=== PATIENT | female | born 1990 | race Caucasian/White ===

== ENCOUNTER 2019-04-24 15:46 | Observation (INO) | payer OTHER ==
[2019-04-24] MEDS ORDERED: IBUPROFEN 600 MG TAB PO STA (16:53)
[2019-04-24] MEDS ORDERED: ACETAMINOPHEN TAB 325 MG TAB PO STA (16:53)
[2019-04-24] MEDS ORDERED: DIPH,PERTUS(ACELL)TETVAC-LF 0.5 ML VIAL IM ONE (16:53)
--- NOTE | 2019-04-24 16:53 | ED ---
Skin/Abscess/FB HPI - General Chief complaint: Skin/Abscess/Foreign Body Stated complaint: Abscess Time Seen by Provider: 04/24/19 16:25 Source: patient, RN notes reviewed, old records reviewed Mode of arrival: ambulatory Limitations: no limitations - History of Present Illness Initial comments: This is a 28-year-old female DF for evaluation. Patient is fever multiple abscesses. History of IV drug abuse, Cocaine. Patient denies alcohol abuse. No other underlying medical conditions. She has history of abscess before she present to symptomatic today for inpatient psychiatric and drug abuse treatment. Patient presents today from [facility] for evaluation regarding fever and abscesses. Swelling of arm and right hand being the most significant area. Positive nausea no vomiting last drug use was is more MD complaint: rash, abscess/boil (Right Hand) -: days(s) Tetanus Up to Date: yes Location: RUE, R hand Severity: moderate Severity scale (1-10): 5 Quality: aching Consistency: constant Improves with: none Context: none Associated symptoms: denies other symptoms Treatments Prior to Arrival: none - Related Data Allergies Allergy/AdvReac Type Severity Reaction Status Date / Time No Known Allergies Allergy Verified 04/24/19 16:00 Review of Systems ROS Statement: Those systems with pertinent positive or pertinent negative responses have been documented in the HPI. ROS Other: All systems not noted in ROS Statement are negative. Past Medical History Additional Past Medical History / Comment(s): hep c History of Any Multi-Drug Resistant Organisms: None Reported Past Surgical History: Appendectomy, Section Additional Past Surgical History / Comment(s): liver biopsy Past Psychological History: Anxiety, Bipolar, Depression Smoking Status: Current every day smoker Past Alcohol Use History: None Reported Past Drug Use History: Cocaine, Heroin, IV Drug Use, Marijuana General Exam Limitations: no limitations General appearance: alert, in no apparent distress Head exam: Present: atraumatic, normocephalic, normal inspection Eye exam: Present: normal appearance, PERRL, EOMI. Absent: scleral icterus, conjunctival injection, periorbital swelling ENT exam: Present: normal exam, mucous membranes moist Neck exam: Present: normal inspection. Absent: tenderness, meningismus, lymphadenopathy Respiratory exam: Present: normal lung sounds bilaterally. Absent: respiratory distress, wheezes, rales, rhonchi, stridor Cardiovascular Exam: Present: normal rhythm, tachycardia, normal heart sounds. Absent: systolic murmur, diastolic murmur, rubs, gallop, clicks GI/Abdominal exam: Present: soft, normal bowel sounds. Absent: distended, tenderness, guarding, rebound, rigid Extremities exam: Present: normal inspection, full ROM, normal capillary refill. Absent: tenderness, pedal edema, joint swelling, calf tenderness Back exam: Present: normal inspection Neurological exam: Present: alert, oriented X3, CN II-XII intact Psychiatric exam: Present: normal affect, normal mood Skin exam: Present: warm, dry, intact, normal color. Absent: rash Course Vital Signs 04/24/19 04/24/19 15:55 17:39 Temperature 100.9 F H Pulse Rate 120 H 108 H Respiratory 20 18 Rate Blood Pressure 108/70 106/68 O2 Sat by Pulse 100 99 Oximetry - Reevaluation(s) Reevaluation #1: 04/24/19 18:11 Medical records reviewed Reevaluation #2: 04/24/19 18:11 Patient's numbness and tingling of her upper extremity with fever control is improved, symptom management - Consultations Consultation #1: Spoke with [facility] chitra for admission Medical Decision Making - Medical Decision Making 28 female DF history of IVDA coming in for abscess evaluation, right upper extremity edema surrounding cellulitis and abscess on the hand, dorsal aspect of the hand secondary to IV drug use surrounding cellulitis and fever. They she'll be admitted for fever control hydration IV antibiotics and surgical evaluation - Lab Data Result diagrams: 04/24/19 17:20 04/24/19 17:20 Lab Results 04/24/19 04/24/19 Range/Units 17:20 17:20 WBC 14.3 H (3.8-10.6) k/uL RBC 4.19 (3.80-5.40) m/uL Hgb 12.2 (11.4-16.0) gm/dL Hct 36.4 (34.0-46.0) % MCV 86.9 (80.0-100.0) fL MCH 29.0 (25.0-35.0) pg MCHC 33.4 (31.0-37.0) g/dL RDW 13.6 (11.5-15.5) % Plt Count 237 (150-450) k/uL Neutrophils % 75 % Lymphocytes % 15 % Monocytes % 5 % Eosinophils % 2 % Basophils % 3 % Neutrophils # 10.7 H (1.3-7.7) k/uL Lymphocytes # 2.1 (1.0-4.8) k/uL Monocytes # 0.7 (0-1.0) k/uL Eosinophils # 0.3 (0-0.7) k/uL Basophils # 0.4 H (0-0.2) k/uL Sodium 135 L (137-145) mmol/L Potassium 3.5 (3.5-5.1) mmol/L Chloride 100 (98-107) mmol/L Carbon Dioxide 25 (22-30) mmol/L Anion Gap 10 mmol/L BUN 8 (7-17) mg/dL Creatinine 0.64 (0.52-1.04) mg/dL Est GFR (CKD-EPI)AfAm >90 (>60 ml/min/1.73 sqM) Est GFR (CKD-EPI)NonAf >90 (>60 ml/min/1.73 sqM) Glucose 108 H (74-99) mg/dL Calcium 8.3 L (8.4-10.2) mg/dL Phosphorus 3.0 (2.5-4.5) mg/dL Magnesium 1.8 (1.6-2.3) mg/dL Total Bilirubin 0.4 (0.2-1.3) mg/dL AST 25 (14-36) U/L ALT 25 (4-34) U/L Alkaline Phosphatase 53 (38-126) U/L Total Protein 6.8 (6.3-8.2) g/dL Albumin 3.7 (3.5-5.0) g/dL Disposition Clinical Impression: Abscess of right hand, Cellulitis of right hand, Fever Disposition: ADMITTED IP TO THIS [facility] Condition: Fair Is patient prescribed a controlled substance at d/c from ED?: No Referrals: Nonstaff,Physician [REFERRING] - 1-2 days
[2019-04-24] MEDS ORDERED: VANCOMYCIN IV PER PHARMACY 1 EACH MISC MISCELLANE PRN (16:54)
[2019-04-24] MEDS ORDERED: VANCOMYCIN 1,000 MG in SODIUM CHLORIDE 0.9% 250 ML IVPB STA (17:10)
[2019-04-24 17:39] LABS: ALT 25 U/L (4-34); AST 25 U/L (14-36); African American GFR (CKD) >90 (>60 ml/min/1.73 sqM); Albumin 3.7 g/dL (3.5-5.0); Alkaline Phosphatase 53 U/L (38-126); Anion Gap 10 mmol/L; Blood Urea Nitrogen 8 mg/dL (7-17); Calcium 8.3 mg/dL (8.4-10.2); Carbon Dioxide 25 mmol/L (22-30); Chloride 100 mmol/L (98-107); Glucose 108 mg/dL (74-99); Magnesium 1.8 mg/dL (1.6-2.3); Non-African American GFR(CKD) >90 (>60 ml/min/1.73 sqM); Potassium 3.5 mmol/L (3.5-5.1); Sodium 135 mmol/L (137-145); Total Bilirubin 0.4 mg/dL (0.2-1.3); Total Protein 6.8 g/dL (6.3-8.2)
[2019-04-24 17:49] LABS: Basophils # (A) 0.4 k/uL (0-0.2); Basophils % (A) 3 %; Eosinophils # (A) 0.3 k/uL (0-0.7); Eosinophils % (A) 2 %; HCT 36.4 % (34.0-46.0); HGB 12.2 gm/dL (11.4-16.0); Lymphocytes # (A) 2.1 k/uL (1.0-4.8); Lymphocytes % (A) 15 %; MCHC 33.4 g/dL (31.0-37.0); MCV 86.9 fL (80.0-100.0); Mean Platelet Volume 7.9; Monocytes # (A) 0.7 k/uL (0-1.0); Monocytes % (A) 5 %; Neutrophils # (A) 10.7 k/uL (1.3-7.7); Neutrophils % (A) 75 %; Platelet Count 237 k/uL (150-450); RBC 4.19 m/uL (3.80-5.40); RDW 13.6 % (11.5-15.5); WBC 14.3 k/uL (3.8-10.6)
[2019-04-24] MEDS ORDERED: KETOROLAC 30 MG/ML 1 ML VIAL IVP STA (18:10)
[2019-04-24] MEDS ORDERED: ACETAMINOPHEN TAB 325 MG TAB PO PRN (18:10)
[2019-04-24] MEDS: SODIUM CHLORIDE 0.9% 500 ML 500 ML IV SCH (18:14)
--- NOTE | 2019-04-24 18:14 | XR ---
EXAMINATION TYPE: XR chest 2V DATE OF EXAM: 04/24/2019 COMPARISON: NONE HISTORY: Fever TECHNIQUE: 2 views FINDINGS: Heart and mediastinum are normal. Lungs are clear. Diaphragm is normal. Bony thorax appears normal. IMPRESSION: Normal chest.
[2019-04-24] MEDS: SODIUM CHLORIDE 0.9% 1,000 ML IV SCH (21:18)
--- NOTE | 2019-04-24 21:46 | XR ---
EXAMINATION TYPE: XR hand complete RT DATE OF EXAM: 04/24/2019 COMPARISON: NONE HISTORY: Pain and swelling TECHNIQUE: 3 views FINDINGS: I see no fracture nor dislocation. There is soft tissue swelling of the hand. Joint spaces appear normal. IMPRESSION: Soft tissue swelling. No fracture seen.
--- NOTE | 2019-04-24 21:47 | XR ---
EXAMINATION TYPE: XR forearm RT DATE OF EXAM: 04/24/2019 COMPARISON: NONE HISTORY: Pain and cellulitis TECHNIQUE: 2 views FINDINGS: I see no fracture nor dislocation. Joint spaces are normal. Wrist joint and elbow joint jyoti ear intact. IMPRESSION: There is soft tissue swelling at the wrist and hand. No fracture seen.
[2019-04-24] MEDS ORDERED: ACETAMINOPHEN IV (For NPO) 1,000 MG in EMPTY BAG 1 BAG IVPB ONE (23:45)
[2019-04-25] MEDS: SODIUM CHLORIDE 0.9% 1,000 ML IV SCH ×4 (05:56→23:28)
[2019-04-25] MEDS: VANCOMYCIN 1,250 MG in SODIUM CHLORIDE 0.9% 250 ML IVPB SCH ×2 (05:56→17:16)
[2019-04-25] MEDS: LORazepam 2 MG/ML INJ IV PRN ×4 (08:14→22:11)
[2019-04-25] MEDS ORDERED: LORazepam 0.5 MG TAB PO PRN (13:00)
[2019-04-25] MEDS ORDERED: KETOROLAC 30 MG/ML 1 ML VIAL IM PRN (13:15)
[2019-04-25] MEDS: HEPARIN SODIUM,PORCINE 5,000 UNIT/ML 1 ML VIAL SQ SCH ×2 (13:49→20:40)
--- NOTE | 2019-04-25 14:03 | P.CNOR ---
History of Present Illness - [facility] Consult date: 04/25/19 Consult reason: other History of present illness: Patient is a 28-year-old female who presented to [facility] emergency room from [place] rehab facility with concern of multiple abscesses involving the bilateral upper extremities and fever. Patient has a known history of IV drug abuse, she states that she checked into rehab yesterday. patient states that she lives in [place] with her boyfriend. Patient was admitted under internal medicine for further workup and treatment, infectious disease and our orthopedic team were both consulted for this patient. Patient was examined today on the surgical floor at bedside. She notes most discomfort in the right arm, minimal discomfort in the left arm. When asked one last time she is IV drugs, she admits to yesterday before going to rehab. She states that she's had previous abscesses in the past, none that have required hospitalization and treatment. She has no other orthopedic complaints this time. Review of Systems Constitutional: Reports as per [facility] Past Medical History Past Medical History: Pneumonia, Seizure Disorder Additional Past Medical History / Comment(s): hep c, past seizures last one at 18 years old, History of Any Multi-Drug Resistant Organisms: None Reported Past Surgical History: Appendectomy, Section, Tubal Ligation Additional Past Surgical History / Comment(s): liver biopsy, 2 c-sections Past Anesthesia/Blood Transfusion Reactions: No Reported Reaction Additional Past Anesthesia/Blood Transfusion Reaction / Comm: dizzy/lightheaded/fainted from blood draws in the past Past Psychological History: Anxiety, Bipolar, Depression Smoking Status: Current every day smoker Past Alcohol Use History: None Reported Past Drug Use History: Cocaine, Heroin, IV Drug Use, Marijuana Additional Drug Use History / Comment(s): pt states she last used herion yesterday morning 04/23/19. she states she has used crack in the past as well. pt came from [place] for medical evaluation, plans to go back at discharge Medications and Allergies Home Medications Medication Instructions Recorded Confirmed Type No Known Home Medications 04/24/19 04/24/19 History Allergies Allergy/AdvReac Type Severity Reaction Status Date / Time No Known Allergies Allergy Verified 04/24/19 18:16 Physical Examination Bilateral upper extremities Multiple scars and areas of bruising throughout both extremities Multiple abscesses present of the right upper extremity, non-or open at this time, no active drainage visualized. There is of redness are noted more on the dorsum of the hand, the base of the thumb and the medial aspect of the upper forearm on the right side Compartments involving the upper extremities are soft Range of motion of the upper extremities with regards to extension and flexion at the wrist and elbow are intact, she is able to make a fist bilaterally skin is warm to touch, radial pulses 2+ bilaterally Results - Labs Labs: Abnormal Lab Results - Last 24 Hours (Table) 04/24/19 04/24/19 Range/Units 17:20 17:20 WBC 14.3 H (3.8-10.6) k/uL Neutrophils # 10.7 H (1.3-7.7) k/uL Basophils # 0.4 H (0-0.2) k/uL Sodium 135 L (137-145) mmol/L Glucose 108 H (74-99) mg/dL Calcium 8.3 L (8.4-10.2) mg/dL H & H 04/24/19 Range/Units 17:20 Hgb 12.2 (11.4-16.0) gm/dL Hct 36.4 (34.0-46.0) % Result Diagrams: 04/24/19 17:20 04/24/19 17:20 - Diagnostic results Wrist/Hand x-ray: report reviewed, image reviewed Assessment and Plan Plan: Imaging: X-rays of the hand and wrist were obtained on the right side, negative for any acute fractures, dislocations or foreign bodies Assessment: 1. Multiple abscesses bilateral upper extremities 2. IV drug abuse 3. Other medical comorbidities Plan: I was able to discuss the case, including with physical exam findings and imaging studies and my attending Dr. López. Our plan is to proceed with an incision and drainage with irrigation and debridement of the abscesses involving the bilateral upper extremities. Surgery scheduled for the morning of 04/26/2019 Nothing by mouth after midnight Medical recommendations Infectious disease recommendations Further recommendations to follow after surgery Time with Patient: Less than 30
[2019-04-25 14:31] LABS: Appearance,Urine Cloudy (Clear); Bilirubin,Urine Negative (Negative); Blood,Urine Negative (Negative); Color,Urine Yellow; Glucose,Urine (UA) Negative (Negative); Ketones,Urine 2+ (Negative); Leukocyte Esterase,Urine Negative (Negative); Mucus,Urine Rare /hpf; Nitrite,Urine Negative (Negative); PH, Urine 7.5 (5.0-8.0); Protein,Urine Negative (Negative); RBC,Urine 3 /hpf (0-5); Specific Gravity,Urine 1.016 (1.001-1.035); Squamous Epithelial Cell,Urine 4 /hpf (0-4); Urobilinogen,Urine <2.0 mg/dL (<2.0); WBC,Urine 3 /hpf (0-5)
--- NOTE | 2019-04-25 15:23 | HP ---
HISTORY AND PHYSICAL DATE OF SERVICE: 04/25/2019 CHIEF COMPLAINT: Skin abscess on the right hand as well as fever. HISTORY OF PRESENT ILLNESS: This is a 28-year-old woman with a past medical history of pneumonia, seizures, hepatitis C, history of polysubstance abuse, anxiety, bipolar depression, not being followed by primary physician. The patient is living in the [place] area along with her boyfriend. The patient apparently checked in to [facility] for rehab. In the rehab patient was noted multiple swelling on the right arm where the IV sites have been used and patient also had a fever, recurrent because of concerns for abscess related to IV drug abuse, patient was referred to [facility] and admitted for further evaluation and treatment. There is no history of chest pain, no history of palpitation, headache, loss of consciousness, seizures. No sudden diarrhea or any joint pains at this time. PAST MEDICAL HISTORY: Pneumonia, seizures, hepatitis C, anxiety, bipolar depression. HOME MEDICATIONS: None. ALLERGIES: None. FAMILY HISTORY: No history of heart disease or strokes in the family. SOCIAL HISTORY: History of smoking, history IV drug abuse, heroin, cocaine, history of THC. No history of alcohol intake. REVIEW OF SYSTEMS: ENT: No diminished vision or diminished hearing.. CARDIOVASCULAR SYSTEM: No angina. RESPIRATORY SYSTEM: No cough, hemoptysis. GI: No nausea. : No dysuria. NERVOUS SYSTEM: No numbness or weakness. ALLERGY/IMMUNOLOGY: No asthma or hayfever. MUSCULOSKELETAL: As mentioned earlier. HEMATOLOGY: No history of anemia. ENDOCRINE: No history of diabetes or hypothyroid. CONSTITUTIONAL: As mentioned earlier. DERMATOLOGY: Negative. RHEUMATOLOGY: Negative. PSYCHIATRY: As mentioned earlier. PHYSICAL EXAMINATION: Alert and oriented x3. Pulse 82, blood pressure 100/65, respiration 18, temperature is 98.4, pulse ox 98% on room air. HEENT: Conjunctivae normal. Oral mucosa moist. NECK: No jugular venous distention. No lymph node enlargement. CARDIOVASCULAR SYSTEM: No stenosis no stenosis no S4 no murmur no thrills respiration the bases no rhonchi no crackles. ABDOMEN: Soft, nontender. No mass palpable. LEGS: No edema, no swelling. NERVOUS SYSTEM: Higher functions as mentioned earlier. Moves all 4 limbs. No focal motor signs. LYMPHATICS: No lymph node enlargement in the neck or axillae. SKIN: No ulcers. JOINTS: No active arthropathy. Examination of the right hand with multiple abscesses at the skin injection sites with some not fluctuate, soft to hard abscesses present. LABS: WBC is 14.3, hemoglobin is 12.2. sodium 130, potassium 3.5. Influenza negative. ASSESSMENT: 1. Multiple skin abscesses on the right hand related to IV drug abuse with fever with possible SIRS, present on admission. 2. Increased WBC. 3. Hyponatremia. 4. History of IV drug abuse. 5. Polysubstance abuse including cocaine, heroin, marijuana. 6. History of nicotine dependence. 7. History of pneumonia. 8. History of seizure disorder. 9. History of hepatitis C. 10.History of appendectomy. 11.History of anxiety, bipolar depression. RECOMMENDATION: In this 28-year-old woman who presented with multiple complex medical issues, will monitor the patient closely. Continue with the current management and continue with broad-spectrum IV antibiotics. Will initiate Kefzol. Follow the cultures. Consult Dr. Mayers. Repeat labs. Symptomatic treatment. A 2D echo has been ordered. Prognosis guarded. Further recommendations to follow. MMODL / IJN: [id number] /
--- NOTE | 2019-04-25 18:22 | ECHOF ---
Referral Reason:iv da fever skin abscess MEASUREMENTS -------- HEIGHT: 154.9 cm WEIGHT: 60.3 kg BP: RVIDd: 2.9 cm (< 3.3) IVSd: 1.2 cm (0.6 - 1.1) LVIDd: 4.3 cm (3.9 - 5.3) LVPWd: 1.1 cm (0.6 - 1.1) IVSs: 1.6 cm LVIDs: 2.8 cm LVPWs: 1.7 cm LA Diam: 3.4 cm (2.7 - 3.8) Ao Diam: 3.0 cm (2.0 - 3.7) AV Cusp: 2.3 cm (1.5 - 2.6) MV EXCURSION: 14.991 mm (> 18.000) MV EF SLOPE: 125 mm/s (70 - 150) EPSS: 0.4 cm MV E Prince: 0.75 m/s MV DecT: 212 ms MV A Prince: 0.72 m/s MV E/A Ratio: 1.04 FINDINGS -------- Sinus rhythm. This was a technically good study. The left ventricular size is normal. There is borderline concentric left ventricular hypertrophy. Overall left ventricular systolic function is normal with, an EF between 60 - 65 %. The right ventricle is normal in size. The left atrial size is normal. The right atrium is normal in size. Interatrial and interventricular septum intact. The aortic valve is trileaflet and appears structurally normal. There is trace mitral regurgitation. Elongated and redundant anterior mitral leaflet. The tricuspid valve appears structurally normal. Trace/mild (physiologic) pulmonic regurgitation. The aortic root size is normal. Normal inferior vena cava with normal inspiratory collapse consistent with estimated right atrial pre ssure of 5 mmHg. There is no pericardial effusion. CONCLUSIONS -------- 1. Sinus rhythm. 2. This was a technically good study. 3. The left ventricular size is normal. 4. Overall left ventricular systolic function is normal with, an EF between 60 - 65 %. 5. The right ventricle is normal in size. 6. The left atrial size is normal. 7. The right atrium is normal in size. 8. Interatrial and interventricular septum intact. 9. The aortic valve is trileaflet and appears structurally normal. 10. There is trace mitral regurgitation. 11. Elongated and redundant anterior mitral leaflet. 12. The tricuspid valve appears structurally normal. 13. Trace/mild (physiologic) pulmonic regurgitation. 14. The aortic root size is normal. 15. Normal inferior vena cava with normal inspiratory collapse consistent with estimated right atrial pressure of 5 mmHg. 16. There is no pericardial effusion. BAR HOST/HOSTESS: NASRA Ansari
[2019-04-25] MEDS: KETOROLAC 30 MG/ML 1 ML VIAL IVP PRN (20:40)
[2019-04-26] MEDS: LORazepam 2 MG/ML INJ IV PRN ×3 (02:15→11:49)
[2019-04-26] MEDS: KETOROLAC 30 MG/ML 1 ML VIAL IVP PRN ×2 (06:13→11:48)
[2019-04-26] MEDS: VANCOMYCIN 1,250 MG in SODIUM CHLORIDE 0.9% 250 ML IVPB SCH (06:16)
[2019-04-26] MEDS ORDERED: LACTATED RINGERS 1,000 ML IV SCH (07:00)
[2019-04-26] MEDS ORDERED: SCOPOLAMINE 1.5MG/72HR PATCH TRANSDERM ONE (07:00)
[2019-04-26] MEDS ORDERED: DEXAMETHASONE SOD PHOSPHATE 10 MG/ML 1 ML VIAL IV ONE (07:00)
[2019-04-26] MEDS ORDERED: HYDROmorphone 0.5 MG/0.5 ML SYRINGE IVP PRN (07:00)
[2019-04-26] MEDS ORDERED: LIDOCAINE 1% 20 ML VIAL (10MG/ML) FOR IV START INTRADERMA PRN (07:00)
[2019-04-26] MEDS ORDERED: IV FLUID CONTINUATION 300 ML IV ONE (07:09)
[2019-04-26] MEDS ORDERED: LIDOCAINE 1% 20 ML VIAL (10MG/ML) FOR IV START INTRADERMA ONE (07:09)
--- NOTE | 2019-04-26 07:37 | P.CONS ---
History of Present Illness - Reason for Consult Consult date: 04/25/19 skin abscess Requesting physician: Shilpa Holden - Chief Complaint fever and wrist pain x days - History of Present Illness Patient is a 28-year female with a past medical history significant for IV drug use patient has been sent to the ER from [place] [facility] for evaluation of multiple abscesses involving her bilateral upper extremities and fever patient noticed to have multiple areas of swelling redness on the skin around the hand and the elbow area with the patient has been injecting this is been going on for the last few days patient be complaining of pain mostly to the lesion on the wrist area which has been throbbing to dull aching with intensity about 6-7 out of 10 no radiation there is associated swelling and redness currently with no open areas or any drainage patient did have some chills along with a fever on presentation to the hospital the patient did have fever 100.9 F patient did have white count of 14.3, influenza serology was negative UA was negative patient did have a chest x-ray which was negative x-rays of the hand did show soft tissue swelling but no fracture is seen x-rays of the forearm soft tissue swelling of the wrist and hand patient been evaluated by orthopedics with plan for I&D of these abscesses in the morning patient be started on vancomycin and cefazolin infection was consulted for further recommendation regarding antibiotic therapy. Review of Systems Positive point has been mentioned in HPI rest of the systems are negative Past Medical History Past Medical History: Pneumonia, Seizure Disorder Additional Past Medical History / Comment(s): hep c, past seizures last one at 18 years old, History of Any Multi-Drug Resistant Organisms: None Reported Past Surgical History: Appendectomy, Section, Tubal Ligation Additional Past Surgical History / Comment(s): liver biopsy, 2 c-sections Past Anesthesia/Blood Transfusion Reactions: No Reported Reaction Additional Past Anesthesia/Blood Transfusion Reaction / Comm: dizzy/lightheaded/fainted from blood draws in the past Past Psychological History: Anxiety, Bipolar, Depression Smoking Status: Current every day smoker Past Alcohol Use History: None Reported Past Drug Use History: Cocaine, Heroin, IV Drug Use, Marijuana Additional Drug Use History / Comment(s): pt states she last used herion yesterday morning 04/23/19. she states she has used crack in the past as well. pt came from [place] for medical evaluation, plans to go back at discharge Medications and Allergies Home Medications Medication Instructions Recorded Confirmed Type No Known Home Medications 04/24/19 04/24/19 History Allergies Allergy/AdvReac Type Severity Reaction Status Date / Time No Known Allergies Allergy Verified 04/26/19 07:09 Physical Exam Vitals: Vital Signs Temp Pulse Resp BP Pulse Ox 04/25/19 19:18 98.8 F 97 18 113/67 98 04/25/19 15:00 98.8 F 101 H 16 109/72 99 04/25/19 07:00 98.5 F 82 18 100/65 98 04/25/19 04:41 14 04/25/19 00:58 97.7 F 80 14 99/64 99 04/25/19 00:40 14 Intake and Output 04/25/19 04/25/19 04/25/19 06:59 14:59 22:59 Intake Total 1660 Balance 1660 Intake: Intake, IV Titration 830 Amount Sodium Chloride 0.9% 1, 780 000 ml @ 130 mls/hr IV . Q7H42M [facility] Rx#:[id number] ceFAZolin 2 gm In Sodium 50 Chloride 0.9% 50 ml @ 100 mls/hr IVPB Q8HR NIMISHA Rx# :[id number] Oral 830 Other: Voiding Method Toilet Toilet # Voids 2 GENERAL DESCRIPTION: Middle-aged female lying in bed, no distress. No tachypnea or accessory muscle of respiration use. HEENT: Shows Pallor , no scleral icterus. Oral mucous membrane is dry. NECK: Trachea central, no thyromegaly. LUNGS: Unlabored breathing. Clear to auscultation anteriorly. No wheeze or crackle. HEART: S1, S2, regular rate and rhythm. ABDOMEN: Soft, no tenderness , guarding or rigidity EXTREMITIES: No edema of feet. Patient did have multiple areas of swelling redness especially at the wrist and elbow area slightly warm and tender to touch no drainage SKIN: No rash, no masses palpable. NEUROLOGICAL: The patient is awake, alert, oriented x3, mood and affect normal. Results CBC & Chem 7: 04/24/19 17:20 04/24/19 17:20 Labs: Abnormal Lab Results - Last 24 Hours (Table) 04/25/19 Range/Units 13:53 Urine Appearance Cloudy H (Clear) Urine Ketones 2+ H (Negative) Urine Mucus Rare H (None) /hpf Microbiology - Last 24 Hours (Table) 04/24/19 17:20 Blood Culture - Preliminary Blood No Growth after 24 hours Assessment and Plan Assessment: -patient admitted to hospital with sepsis in this patient did have a fever elevated white count source is likely multiple abscesses to bilateral upper extremity especially around the wrist and the hand area from injection drug use and likely secondary to gram-positive skin susana such as MRSA or gram-negative infection such as Pseudomonas not entirely excluded (1) Sepsis Current Visit: Yes Status: Acute Code(s): A41.9 - SEPSIS, UNSPECIFIED ORGANISM SNOMED Code(s): 06756156 (2) Abscess of right hand Current Visit: Yes Status: Acute Code(s): L02.511 - CUTANEOUS ABSCESS OF RIGHT HAND SNOMED Code(s): 85362462695057851 (3) Cellulitis of right hand Current Visit: Yes Status: Acute Code(s): L03.113 - CELLULITIS OF RIGHT UPPER LIMB SNOMED Code(s): 97181315 Plan: 1-vancomycin pharmacy to dose her with a target trough of 15 while watching her kidney function and Vanco trough closely. 2-discontinue cefazolin 3-start the patient cefepime 2 g every 12 hours 4-await surgical drainage and cultures that would guide further antibiotic therapy We will follow on clinical condition and cultures to further adjust medication if needed Thank you for this consultation we will follow the patient along with you Time with Patient: Greater than 30
[2019-04-26] MEDS ORDERED: PROPOFOL 10 MG/ML 20 ML VIAL IV ONE (07:52)
[2019-04-26] MEDS ORDERED: LIDOCAINE 1% INJ 10MG/ML (20 ML MDV) ONE (07:52)
[2019-04-26] MEDS ORDERED: SUCCINYLCHOLINE CHLORIDE 100 MG/5 ML SYR IV ONE (07:52)
[2019-04-26] MEDS ORDERED: MIDAZOLAM 2 MG/2 ML VIAL ONE (07:52)
[2019-04-26] MEDS ORDERED: fentaNYL (PF) 50 MCG/ML 2 ML AMP ONE (07:52)
[2019-04-26] MEDS ORDERED: CEFEPIME 2 GM in SODIUM CHLORIDE 0.9% 100 ML IVPB SCH (09:00)
--- NOTE | 2019-04-26 09:02 | P.OP ---
Date of Procedure: 04/26/19 Preoperative Diagnosis: Multiple subcutaneous abscesses right and left hand/forearm Postoperative Diagnosis: Same Procedure(s) Performed: Incision and drainage multiple subcutaneous abscesses right and left forearm/wrist/hand Anesthesia: BRENDA Surgeon: [place] López Network Security Administrator #1: Tera Dorsey Estimated Blood Loss (ml): 5 Pathology: other (Cultures) Condition: stable Disposition: PACU Indications for Procedure: The patient is a 28-year-old intravenous drug user who presents with fevers/chills along with multiple abscess in both the right and left forearm/wrist/hand. A discussion of the risks and benefits of operative intervention was made with patient. Specific risks to include possible persistence of infection and need for subsequent procedures was discussed. Informed consent was obtained. Operative Findings: As below Description of Procedure: The patient was brought to the operating room, and after induction of general anesthesia the right and left upper extremities were prepped and draped in normal fashion. The tourniquet was inflated to 250 mmHg. Eight small incisions were made over the dorsum of the right hand specifically the index MCP joint dorsal radial wrist volar radial wrist and volar ulnar proximal forearm. These incisions were approximated 5 mm in length. Subcu change tissues were divided bluntly. Purulent was expressed from the abscesses. The wounds were copiously irrigated with saline. Skin edges were loosely reapproximated with simple 3-0 nylon suture. A sterile dressing was applied. Attention was then paid towards the left upper extremity. The tourniquet was inflated to 250 mmHg. 2 dorsal hand abscesses were incised. Purulence was expressed. A volar ulnar proximal forearm abscess was also incised. Again purulence was expressed. These wounds were irrigated normal saline. The skin edges were loosely reapproximated with simple 3-0 nylon suture. A sterile dressing was applied. The tourniquets were deflated with less than 20 minutes total tourniquet time. The patient was awoken from general anesthesia and transferred to recovery room in good condition. Blood loss was estimated at 5 mL. No complications were incurred. Sponge and needle counts were correct at the end the case. Deep cultures were obtained.
[2019-04-26] MEDS: SODIUM CHLORIDE 0.9% 1,000 ML IV SCH (09:47)
[2019-04-26] MEDS: HEPARIN SODIUM,PORCINE 5,000 UNIT/ML 1 ML VIAL SQ SCH (09:47)
[2019-04-26 09:52] LABS: Basophils # (A) 0.1 k/uL (0-0.2); Basophils % (A) 2 %; Eosinophils # (A) 0.1 k/uL (0-0.7); Eosinophils % (A) 2 %; HGB 10.9 gm/dL (11.4-16.0); Lymphocytes # (A) 1.6 k/uL (1.0-4.8); Lymphocytes % (A) 23 %; MCH 28.7 pg (25.0-35.0); MCV 86.9 fL (80.0-100.0); Mean Platelet Volume 9.2; Monocytes # (A) 0.4 k/uL (0-1.0); Monocytes % (A) 5 %; Neutrophils # (A) 4.7 k/uL (1.3-7.7); Neutrophils % (A) 67 %; Platelet Count 208 k/uL (150-450); RDW 13.3 % (11.5-15.5)
[2019-04-26 09:56] VITALS: BP 85/41; PULSE 72; RESP 17; TEMP 97.8
[2019-04-26 09:56] LABS: African American GFR (CKD) >90 (>60 ml/min/1.73 sqM); Anion Gap 7 mmol/L; Blood Urea Nitrogen 4 mg/dL (7-17); Calcium 7.6 mg/dL (8.4-10.2); Carbon Dioxide 22 mmol/L (22-30); Chloride 110 mmol/L (98-107); Glucose 91 mg/dL (74-99); Non-African American GFR(CKD) >90 (>60 ml/min/1.73 sqM); Potassium 3.9 mmol/L (3.5-5.1); Sodium 139 mmol/L (137-145)
[2019-04-26] MEDS ORDERED: NICOTINE 21MG/24HR PATCH TRANSDERM SCH (12:00)
--- NOTE | 2019-04-26 12:55 | PN ---
PROGRESS NOTE DATE OF SERVICE: 04/26/2019 REASON FOR FOLLOWUP: Bilateral hand abscess and cellulitis. INTERVAL HISTORY: The patient taken to OR this morning and the patient is status post I and D of the right and left forearm and wrist abscess, culture has been obtained. Patient is slightly agitated. She wants to go home, but denies any chest pain, cough. No nausea, no vomiting or any diarrhea has been reported. PHYSICAL EXAMINATION: Blood pressure 114/60 with a pulse of 73, temperature of 97, she is 96% on room air. General description is a middle-aged female, lying in bed in no distress. RESPIRATORY SYSTEM: Unlabored breathing, clear to auscultation anteriorly. HEART: S1, S2. Regular rate and rhythm. ABDOMEN: Soft, no tenderness. Bilateral hand and forearm wounds are currently dressed with no drainage on the dressing. LABS: Hemoglobin is 10.8, white count 7.3, BUN of 4, creatinine 0.46. Cultures currently pending. Blood culture so far negative. DIAGNOSTIC IMPRESSION AND PLAN: Patient with bilateral hand and wrist abscess and cellulitis, status post surgical repair. Will await for the culture to finalize to determine discharge antibiotics. Continue with supportive care. MMODL / IJN: [id number] /
--- NOTE | 2019-04-26 13:19 | P.PN ---
Subjective Progress Note Date: 04/26/19 Principal diagnosis: This is a 28-year-old female was recently admitted for swelling noted of the right arm along with fevers and concern for possible abscess related to IV drug abuse and is being closely monitored. Patient underwent an incision and drainage of multiple subcutaneous abscesses of the right and left forearm, wrist, and hands with Dr. López this morning. Cultures were obtained and currently pending at this time. Infectious disease is following. Patient is cu rrently on IV antibiotics in the form of cefepime and vancomycin and will continue at this time. Per nursing staff patient continues to make multiple threats of leaving AGAINST MEDICAL ADVICE. Discussed with the patient at length about staying in the hospital she needs proper IV antibiotics for these multiple abscesses. Patient verbalized understanding. Patient states that she wants to get back to [facility] for rehab and she does not want to rely on heroin anymore. Case management and social work are following. Objective - Vital Signs Vital signs: Vital Signs Temp 97.8 F 04/26/19 09:55 Pulse 72 04/26/19 09:55 Resp 17 04/26/19 09:55 BP 85/41 04/26/19 09:55 Pulse Ox 100 04/26/19 09:55 Intake & Output 04/25/19 04/26/19 04/26/19 18:59 06:59 18:59 Intake Total 1660 2130 800 Output Total 5 Balance 1660 2130 795 Weight 60.509 kg Intake: IV 800 Intake, IV Titration 830 2130 Amount Sodium Chloride 0.9% 1, 780 2080 000 ml @ 130 mls/hr IV . [id number] NIMISHA Rx#:[id number] ceFAZolin 2 gm In Sodium 50 50 Chloride 0.9% 50 ml @ 100 mls/hr IVPB Q8HR NIMISHA Rx# :[id number] Oral 830 Output: Estimated Blood Loss 5 Other: Voiding Method Toilet Toilet # Voids 2 3 - Exam Gen: This is a 28-year-old female lying in bed awake, alert and oriented 3, well-nourished, well-developed. Is 98.5F, pulse is 76, respirations are 20, blood pressure is 102/61, oxygen saturation is 96% on room air. HEENT: Head is atraumatic, normocephalic. Pupils equal, round. Sclerae is anicteric. NECK: Supple. No JVD. No lymphadenopathy. No thyromegaly. LUNGS: Clear to auscultation. No wheezes or rhonchi. No intercostal retractions. HEART: Regular rate and rhythm. No murmur noted. ABDOMEN: Soft. Bowel sounds are present. No masses. No tenderness. EXTREMITIES: No pedal edema. No calf tenderness. Bilateral hands and wrists and forearms are covered with dressing and Schuyler wraps status post incision and drainage this morning NEUROLOGICAL: Patient is awake, alert and oriented x3. Cranial nerves 2 through 12 are grossly intact. - Labs CBC & Chem 7: 04/26/19 08:30 04/26/19 08:30 Labs: Abnormal Lab Results - Last 24 Hours (Table) 04/25/19 04/26/19 04/26/19 Range/Units 13:53 08:30 08:30 Hgb 10.9 L (11.4-16.0) gm/dL Hct 33.0 L (34.0-46.0) % Chloride 110 H (98-107) mmol/L BUN 4 L (7-17) mg/dL Creatinine 0.46 L (0.52-1.04) mg/dL Calcium 7.6 L (8.4-10.2) mg/dL Urine Appearance Cloudy H (Clear) Urine Ketones 2+ H (Negative) Urine Mucus Rare H (None) /hpf Microbiology - Last 24 Hours (Table) 04/24/19 17:20 Blood Culture - Preliminary Blood No Growth after 24 hours Assessment and Plan Assessment: Multiple skin abscesses on the right hand related to IV drug abuse with fever with possible Sirs, present on admission Increased WBC Hyponatremia History of IV drug abuse Polysubstance abuse acute including cocaine, heroin, marijuana History of nicotine dependence History of pneumonia History of seizure disorder History of hepatitis C history of appendectomy History of anxiety, bipolar depression Recommendations and discussion: Recommend to continue current medications, management, and symptomatic treatment. Patient will continue on IV antibiotics in the form of cefepime and Vanco. Infectious disease is following. Dr. López is following. Per nursing staff patient was found in the bathroom multiple times smoking and nicotine p atch was ordered. Due to multiple complex medical issues prognosis is guarded. Further recommendations to follow.
[2019-04-26] MEDS ORDERED: VANCOMYCIN 1,000 MG in SODIUM CHLORIDE 0.9% 250 ML IVPB SCH (14:00)
--- NOTE | 2019-04-26 23:04 | DS ---
DISCHARGE SUMMARY FINAL DIAGNOSES: 1. Multiple subcutaneous skin abscesses related to IV drug abuse with fever with possible SARS, present on admission status post incision and drainage. 2. Increased WBC. 3. Hyponatremia. 4. History IV drug abuse. 5. Polysubstance abuse, cocaine heroin and marijuana. 6. History nicotine dependence. 7. History of pneumonia. 8. History of seizure disorder. 9. History of hepatitis C, history of appendectomy, history of anxiety, bipolar depression. DISCHARGE DISPOSITION: The patient left the hospital AGAINST MEDICAL ADVICE. HISTORY OF PRESENT ILLNESS: This 28-year-old woman who presented with multiple medical problems as mentioned earlier, was treated with IV antibiotics. Orthopedic performed incision and drainage of the multiple subcutaneous abscess, but however the patient left the hospital AGAINST MEDICAL ADVICE. The prognosis was extremely guarded throughout the hospitalization. Please refer to multiple progress notes, staff notes and other consults note for further details on this patient. MMODL / IJN: [id number] /
[2019-04-27] MEDS ORDERED: VANCOMYCIN TROUGH DUE 1 EACH MISC MISCELLANE ONE (05:00)
== END 2019-04-26 12:57 | disposition left against medical advice (07) ==
LOC: EC 15:46 → 4SSUR 18:08
PROVIDERS: ADMIT Hospitalist; ATTEND Hospitalist
DX: L02.511 Cutaneous abscess of right hand (principal); L02.512 Cutaneous abscess of left hand; L02.413 Cutaneous abscess of right upper limb; L02.414 Cutaneous abscess of left upper limb; A41.9 Sepsis, unspecified organism; L03.114 Cellulitis of left upper limb; L03.113 Cellulitis of right upper limb; E87.1 Hypo-osmolality and hyponatremia; F11.10 Opioid abuse, uncomplicated; F14.10 Cocaine abuse, uncomplicated; F12.10 Cannabis abuse, uncomplicated; F17.200 Nicotine dependence, unspecified, uncomplicated; F41.9 Anxiety disorder, unspecified; F31.9 Bipolar disorder, unspecified; R45.1 Restlessness and agitation; Z87.01 Personal history of pneumonia (recurrent); Z86.19 Personal history of other infectious and parasitic diseases; Z86.69 Personal history of other diseases of the nervous system and sense organs; Z90.49 Acquired absence of other specified parts of digestive tract; Z98.51 Tubal ligation status; Z98.890 Other specified postprocedural states; Z23 Encounter for immunization; Z71.51 Drug abuse counseling and surveillance of drug abuser
CPT/HCPCS: 10061; 96376; 96366 ×2; 96375 ×2; 96365; 96367; 99285; 36415; 93306; 93005; 81025 ×2; 80053; 80048; 83735; 84100; 85025 ×2; 81001; 87040; 87070; 87205; 87075; 87502; 73090; 73130; 71046; 90715; G0378 ×3; J2250; J3370 ×3; J2060 ×2; J0690; J0696 ×2; J2001; J3010; J1885 ×3; J0131; J0330; J2704